=== PATIENT | male | born 1985 | race Caucasian/White ===

== ENCOUNTER 2017-06-02 10:52 | Observation (INO) | payer OTHER ==
[~2017-06-02] VITALS: Ht 172.7 cm; Wt 60.3 kg
[2017-06-02 11:02] VITALS: BP 113/72; PULSE 66; RESP 16; O2SAT 100
--- NOTE | 2017-06-02 11:28 | ED.REPORT ---
HPI-Headache Date of Service Jun 02, 2017 ED Provider: Roland Mireles MD A 31 year old male with a history of extremely infrequent migraines presents to the ED complaining of a headache. The headache has been present for three days and is accompanied by right ear pain, photophobia, nightly fever, slight neck soreness and diaphoresis. The headache is exacerbated by standing. The pt suspects that his symptoms are related to a possible ear infection following a piece of cerumen becoming lodged in his ear canal. He denies sore throat. The pt has experienced two to three migraines in the past. Nursing Notes Stated Complaint: MIGRAINE/REF BY DOCTOR Chief Complaint: Headache Nursing Notes Reviewed: Yes Allergies: Coded Allergies: No Known Allergies (Unverified , 06/02/17) Scheduled Neomycin/Polymyxin B Sulf/Hc (Kxvnvlma-Nbvssqcjq-Rr Ear Soln) 10 Ml Solution 4 DROP AFFECT_EAR TID x7 days Vit B Complex 100 Cmb #2/Herbs (Sm Natural Balanced B-100 Tab) 100 Mg Tablet 100 MG PO DAILY Scheduled PRN Aspirin/Acetaminophen/Caffeine (Iouzbtr-Nqkojieumztkv-Salk Tab) 250 Mg-250 Mg- 65 Mg Tablet 1 EACH PO DIRECTED PRN PRN migraine General Time Seen by MD: 11:27 Chief Complaint Headache Hx Obtained From: Patient Arrived By: Walk-in Sudden in Onset?: No Onset Occurred: 3 days ago Symptom Duration: Since onset Recent Healthcare: No recent doctor visit, No recent hospitalization Similar Sx Previous: No Past Medical History Past Medical History extremely infrequent migraines Past Surgical History none reported Smoking History Never Smoker Social History Alcohol Use: "Social" Other Social History: Good social support, Ambulatory Status Independent Review of Systems Review of Systems Note: slight neck soreness Constitutional: Reports: Fever Eyes: Reports: Photophobia Ears / Nose / Throat: Reports: Earache right, Denies: Sore throat GI: Denies: Abdominal pain Musculoskeletal: Denies: Back pain Skin: Reports Diaphoresis, Denies Rash Neurologic: Reports: Headache Complete sys rev & neg: except as marked. Physical Exam Initial Vital Signs Vital Signs (First) Date Time Temp Pulse Resp B/P Pulse Ox O2 Delivery O2 Flow Rate FiO2 06/02/17 11:02 36.6 66 16 113/72 100 Room Air Initial VS: Reviewed General/Constitutional: Awake, Alert Head / Eyes: Atraumatic, Normocephalic, PERRL, EOMI Neck: Atraumatic, Supple, Full range of motion Neurologic: Oriented X3, Speech NL, No motor deficits, No sensory deficits ENT: Airway patent, Mucous membranes moist mild erythema and canal irritation in right ear canal Respiratory / Chest: Atraumatic, Breath sounds NL, Breath sounds = bilat, No respiratory distress Cardiovascular: Heart rate NL, Regular rhythm, Heart sounds NL Abdomen: Atraumatic, Soft, Non-tender Skin: Atraumatic, No rash, Warm, Dry Psychiatric: Affect NL, Mood NL Back: Atraumatic, Full range of motion Upper Extremity / MS: Atraumatic, Full range of motion Lower Extremity / Pelvis / MS: Atraumatic, Full range of motion Interpretation & Diagnostics Lab Results Interpretation Result Diagram: 06/02/17 1300 06/02/17 1300 Test 06/02/17 13:00 06/02/17 15:29 White Blood Count 7.0th/mm3 (3.8-10.1) Red Blood Count 4.86mil/mm3 (4.40-5.80) Hemoglobin 14.3g/dL (13.8-17.2) Hematocrit 42.7% (41.0-50.0) Mean Corpuscular Volume 87.9fL (81-100) Mean Corpuscular Hemoglobin 29.4pg (27.0-35.0) Mean Corpuscular Hemoglobin Concent 33.5% (32.0-37.0) Red Cell Distribution Width 13.7% (12.3-15.4) Platelet Count 212bil/L (150-400) Neutrophils (%) (Auto) 63.3% (40-74) Lymphocytes (%) (Auto) 24.7% (14-46) Monocytes (%) (Auto) 10.5% (4-12) Eosinophils (%) (Auto) 1.1% (0-5) Basophils (%) (Auto) 0.4% (0-3) Sodium Level 140mEq/L (134-144) Potassium Level 3.9mEq/L (3.5-5.2) Chloride Level 98mEq/L (97-108) Carbon Dioxide Level 26mmol/L (18-29) Blood Urea Nitrogen 10mg/dL (6-20) Creatinine 1.22mg/dL (0.76-1.27) Estimat Glomerular Filtration Rate 73mL/min (>59) Glucose Level 98mg/dL (60-99) Calcium Level 9.7mg/dL (8.5-10.1) CSF Appearance Clear (CLEAR) CSF Color Colorless (COLORLESS) CSF WBC 118/mm3 (0-5) CSF RBC 4/mm3 CSF Mononuclear WBCs 15% CSF Polynuclear WBCs 10% CSF Other Cells 75 CSF Glucose 66mg/dL (45-90) CSF Total Protein 57mg/dL (15-45) Lab Results Interpretation: CSF positive for meningitis CT Head Interpretation IMPRESSION: No acute intracranially process. Dictated by: Bisi Cotto M.D. on 06/02/2017 at 12:31 Approved by: Bisi Cotto M.D. on 06/02/2017 at 12:39 Interpretation / Wet Read by: Interpret - Radiologist Procedures Lumbar Puncture Time: 14:35 Procedure Performed by: ED physician Consent / Setup / Site Prep: Informed consent provided, Consent from patient , Time-out performed, Hand hygiene observed, Stand sterile technique, Sterile drapes applied Skin Preparation Agent: Hibiclens - Chlorhexidine Local Anesthesia: Lidocaine w epi 1% Inserted Needle at: L3 L4 Post-Procedure / Complications: Antibiotic oint applied, Dressing applied, No complications, Tolerated procedure well, Patient stable Re-Eval/Medical Decision Med Decision/Clinical Course Meningitis with moderate to severe symptoms. We will plan to admit. Rocephin and vancomycin. Re-Evaluation/Progress #1: Time of Eval: 14:35 )( Patient Status: Condition improved Re-Evaluation/Progress Note: Pt rechecked, who is comfortable. CT results are discussed. LP is performed without complication. Re-Evaluation/Progress #2: Time of Eval: 16:16 Re-Evaluation/Progress Note: Pt rechecked, who is resting. LP results are discussed. The diagnosis and plan for admission are discussed. The pt understands and agrees with the plan. All questions are addressed at this time. Consultation : Referral / Consult Name: Colby Cornelius MD Consulted With: Hospitalist Call Returned at: 17:03 Automatic Lathe Tender: Agrees with eval, Agrees with plan, Accepts admit Note: Spoke with Dr. Cornelius, hospitalist, regarding pt's case. Dr. Cornelius agrees with the evaluation and agrees to admit the pt. Counseled Regarding: Diagnosis, Lab results, Need for admission Discharge & Departure Impression: Primary Impression: Meningitis Disposition: ADMITTED TO HOSPITAL Discharge Condition All VS Reviewed: Yes Condition: Stable Referrals: Dread Candelario Attestation Portions of this note were transcribed by Chrissy Horvath. I, Dr. Mireles personally performed the history, physical exam and medical decision-making; I reviewed and confirmed the accuracy of the information in the transcribed note. copies to: Dread Candelario Timothy S DO Jun 02, 2017 11:27 CHRISSY HORVATH Jun 02, 2017 11:39
[2017-06-02] MEDS ORDERED: 0.9% Sodium Chloride 1,000 ML IV ONE (11:48)
[2017-06-02] MEDS ORDERED: ProchlorPERazine 5 mg/mL 2 mL Inj IVPUSH ONE (11:50)
[2017-06-02] MEDS ORDERED: Dexamethasone 10 mg/mL Inj IVPUSH ONE (11:50)
--- NOTE | 2017-06-02 12:40 | DRSVH ---
PROCEDURE: CT BRAIN WITHOUT CONTRAST ([id number]) INDICATIONS: right sided headache, fevers, photophobia TECHNIQUE: Noncontrast 4.5 mm thick angled axial sections acquired from the foramen magnum to the vertex, with c oronal reformats. COMPARISON: None. FINDINGS: Image quality: Excellent. CSF spaces: Basal cisterns are patent. No extra-axial fluid collections. Ventricles are normal in size and shape. Brain: No midline shift. No intracranial masses or hemorrhage. Moseley-white matter interface is norm al. Skull and face: Calvarium and visualized facial bones are intact, without suspicious lesions. Sinuses: Visualized sinuses and mastoids are clear. IMPRESSION: No acute intracranially process. Dictated by: Bisi Cotto M.D. on 06/02/2017 at 12:31 Approved by: Bisi Cotto M.D. on 06/02/2017 at 12:39
[2017-06-02 13:24] LABS: BASOPHILS % (AUTO) 0.4 % (0-3); EOSINOPHILS % (AUTO) 1.1 % (0-5); MONOCYTES % (AUTO) 10.5 % (4-12); Mean Corpuscular Hemoglobin 29.4 pg (27.0-35.0); Mean Corpuscular Volume 87.9 fL (81-100); NEUTROPHILS % (AUTO) 63.3 % (40-74); Platelet Count 212 bil/L (150-400)
[2017-06-02] MEDS ORDERED: Lidocaine 1%-Epi 1:100,000 20 mL Inj ONE (14:29)
[2017-06-02 16:02] LABS: APPEARANCE,CSF CLEAR (CLEAR); WHITE BLOOD CELL,CSF 118 /mm3 (0-5)
[2017-06-02 16:03] LABS: COLOR,CSF COLORLESS (COLORLESS)
[2017-06-02] MEDS ORDERED: cefTRIAXone Inj 2,000 MG in Dextrose 5% Minibag Plus 50 ML IV ONE (16:15)
[2017-06-02] MEDS ORDERED: Vancomycin Inj 1,500 MG in 0.9% Sodium Chloride 500 ML IV ONE (16:25)
[2017-06-02] MEDS ORDERED: POLY AFFECT_EAR (17:03)
[2017-06-02] MEDS ORDERED: [UNRECOGNIZED DRUG - OTHER] AFFECT_EAR (17:03)
[2017-06-02] MEDS ORDERED: VIT100TA2 PO (17:03)
[2017-06-02] MEDS ORDERED: NEO AFFECT_EAR (17:03)
[2017-06-02 17:05] VITALS: BP 109/58; PULSE 63; RESP 12; O2SAT 97
[2017-06-02] MEDS ORDERED: Alum-Mag Hydrox-Simeth 30 mL Suspension PO PRN (17:25)
[2017-06-02] MEDS ORDERED: Ondansetron 2 mg/mL 2 mL Inj IVPUSH PRN (17:25)
[2017-06-02] MEDS ORDERED: Polyethylene Glycol (PEG) 17 Gm Powder PO PRN (17:25)
[2017-06-02] MEDS ORDERED: EXCEDRINE MIGRAINE (17:37)
[2017-06-02 17:39] VITALS: BP 109/58; PULSE 63; RESP 12; O2SAT 97
--- NOTE | 2017-06-02 17:40 | PCM.HPMED ---
Subjective Date of Service Jun 02, 2017 Primary Provider: Admitting Physician: Colby Cornelius MD Primary Care Physician: Pauly Attending Physician: Colby Cornelius MD Admit Status: From the Emergency Department, 23-Hour Observation, Admit to Green Team Chief Complaint: Headache and stiff neck, photophobia History of Present Illness: This is a 31-year-old gentleman who is been ill since Wednesday. He had some ear pressure and used the blocks as well as acute infarct and remove wax and then developed a headache. He had a severe headache with fevers which woke him up. Resolved on Wednesday but then came back again Wednesday night. He again had severe headache with fevers. Wednesday he went to the urgent care was given a shot which improved his headache for several hours. The patient has had persistent photophobia since Wednesday and some degree of neck stiffness. No nausea, vision. No other neurologic symptoms. The patient presented to the ER today after a follow-up phone call from urgent care where he underwent lumbar puncture which revealed a fair number of white blood cells in his CSF. He was given empiric ceftriaxone and vancomycin. He was afebrile. His CSF PCR panel still pending and Gram stain was negative for organisms. He notes his neck stiffness and photophobia have been slowly getting better. No fevers today. No myalgias. No diarrhea. No skin rash. Review of Systems: All else reviewed and otherwise unremarkable except as noted in the history of present illness Allergies Coded Allergies: No Known Allergies (Unverified , 06/02/17) Home Medications No routine medications PMH Unremarkable Surgical History Unremarkable Family History Mother at age 57 from multiple myeloma, father with KS at age 45 Social History Occupation: mechanical design engineer facilities Hx Alcohol Use: Yes Alcoholic Drinks Per Day: 4/week Hx Substance Use: No Smoking Status: Never Smoker Living Arrangement: with Family Exam Vital Signs Vital Sign - Last Date Time Temp Pulse Resp B/P Pulse Ox O2 Delivery O2 Flow Rate FiO2 06/02/17 17:05 36.8 63 12 109/58 97 Room Air Exam Oriented 3. No distress. Fluent speech. Normal affect. Normal skull. Normal nose and ears. Anicteric sclera, symmetric pupils Oropharynx is unremarkable, no facial droop. Neck is supple, normal thyroid. No adenopathy. Lungs are clear, normal effort rate. Heart is regular without murmur gallop or rub. Abdomen soft, nondistended or tender. Extremities are free of pedal edema. Good radial and pedal pulses. Skin is free of rash, lesions. No petechiae or ecchymosis. Joints are grossly normal. Cranial nerves are grossly normal. Motor strength is normal in all extremities. Normal muscular tone. No confusion, no nuchal rigidity. Lab and Diagnostics Result Diagram: 06/02/17 1300 06/02/17 1300 X-Rays, CTs and MRIs Brain CT unremarkable Assessment & Plan 1. Probable viral meningitis, present on admission and reactive. Patient was treated with empiric antibiotics, will await CSF PCR treated symptomatically with analgesics. 2. Headache, present on admission. Treated symptomatically to wait for Gram stain, culture and PCR. Patient is full resuscitation He is admitted observation status with one night length of stay anticipated. Time spent 40 minutes Colby Cornelius MD Jun 02, 2017 17:40
[2017-06-02] MEDS: 0.9% Sodium Chloride 1,000 ML IV SCH (17:45)
[2017-06-02] MEDS ORDERED: NEOM10SO8 AFFECT_EAR (17:46)
[2017-06-02] MEDS ORDERED: ASPI-1148 PO (17:49)
--- NOTE | 2017-06-02 18:32 | NUR ---
Admission Pt arrived on [facility] to 3031 from ED. Pt able to ambulate from stretcher to bed, steady gait observed. A/Ox3, IV abx infusing. No complains of increased pain, headache, ear pain, photophobia or fever. Oriented to , visiting hours, bed and call light. Spouse at bedside, will be ride home at discharge.
[2017-06-02 18:46] VITALS: BP 111/62; PULSE 70; RESP 18; O2SAT 97
[2017-06-02 20:05] VITALS: BP 98/50; PULSE 68; RESP 18; O2SAT 97
[2017-06-03] MEDS: 0.9% Sodium Chloride 1,000 ML IV SCH (03:54)
--- NOTE | 2017-06-03 05:00 | NUR ---
NOC/Activity Pt is alert and oriented. Pleasant and cooperative with care. IVF running as directed. Precaution for meningitis initiated. Lab called for positive results of enterovirus on CSF sample. Continuing care.
[2017-06-03 05:46] VITALS: BP 104/65; PULSE 57; RESP 18; O2SAT 97
[2017-06-03 06:52] LABS: BASOPHILS % (AUTO) 0.2 % (0-3); EOSINOPHILS % (AUTO) 0 % (0-5); MONOCYTES % (AUTO) 7.1 % (4-12); Mean Corpuscular Hemoglobin 29.5 pg (27.0-35.0); Mean Corpuscular Volume 88.7 fL (81-100); NEUTROPHILS % (AUTO) 82.1 % (40-74); Platelet Count 204 bil/L (150-400)
[2017-06-03] MEDS ORDERED: Vancomycin Dose per Pharmacist XX SCH (08:30)
[2017-06-03 10:09] VITALS: BP 118/71; PULSE 64; RESP 18; O2SAT 99
--- NOTE | 2017-06-03 10:34 | PCM.DIMED ---
Discharge Instructions Date of Service Jun 03, 2017 Dates of Hospitalization Jun 02, 2017 at 17:16 Discharge Diagnosis Discharge Diagnosis 1. Viral meningitis (Enterovirus), improved. 2. Headache related to meningitis Diet Discharge Diet: No restrictions Activity Discharge Activity: No restrictions Call your provider Call your provider for: Fever or Chills, Other (increased headache. ) Patient Instructions Patient Instructions Consider following up in a week and establishing care at the residents clinic Wash hands frequently Follow-up Provider: [facility] Follow-up with PCP in: 1 week Colby Cornelius MD Jun 03, 2017 10:34
[2017-06-03] MEDS ORDERED: IBUP200C PO (10:35)
--- NOTE | 2017-06-03 13:05 | NUR ---
Social Work: Discharge Data & Assessment: EMR reviewed. Patient is a 31 year old male who is on day 1 of hospitalization for meningitis per H&P. Patient's insurance is [employer] Patient does not have a PCP at this time. Patient was discussed in morning rounds. Patient has been deemed medically stable for discharge today per MD. SW was unable to complete an initial assessment prior to discharge. Transportation was provided by family. Patient had no needs at time of discharge. Plan: Patient will discharge home today. Transportation will be provided by family. Patient has no additional needs at this time. CANDIDO Rhodes
--- NOTE | 2017-06-03 15:00 | PCM.DC.MED ---
Discharge Summary Date of Service Jun 03, 2017 Dates of Hospitalization Date of Hospital Admission Jun 02, 2017 at 17:16 Date of Discharge: Jun 03, 2017 Providers: Admitting Physician: Can Cornelius MD Primary Care Physician: Nopcp Attending Physician: Can Cornelius MD Diagnosis at Time of Discharge Diagnosis at Time of Discharge 1. Viral meningitis (Enterovirus), improved. 2. Headache related to meningitis Consultations None Procedures XRay, CTs & MRIs Brain CT unremarkable Invasive Procedures Lumbar puncture in the emergency department revealing a mild pleocytosis, negative Gram stain and culture and a CSF PCR positive for enterovirus. Brief History This is a 31-year-old gentleman who is been ill since Wednesday. He had some ear pressure and used the blocks as well as acute infarct and remove wax and then developed a headache. He had a severe headache with fevers which woke him up. Resolved on Wednesday but then came back again Wednesday night. He again had severe headache with fevers. Wednesday he went to the urgent care was given a shot which improved his headache for several hours. The patient has had persistent photophobia since Wednesday and some degree of neck stiffness. No nausea, vision. No other neurologic symptoms. The patient presented to the ER today after a follow-up phone call from urgent care where he underwent lumbar puncture which revealed a fair number of white blood cells in his CSF. He was given empiric ceftriaxone and vancomycin. He was afebrile. His CSF PCR panel still pending and Gram stain was negative for organisms. He notes his neck stiffness and photophobia have been slowly getting better. No fevers today. No myalgias. No diarrhea. No skin rash. Hospital Course 1. Probable viral meningitis, present on admission and reactive. Patient was treated with empiric antibiotics, will await CSF PCR treated symptomatically with analgesics. 2. Headache, present on admission. Treated symptomatically to wait for Gram stain, culture and PCR. Patient is full resuscitation He is admitted observation status with one night length of stay anticipated. Hospital course. This patient was admitted after receiving empiric antibiotics and observed. He chronically continued to improve with minimal headache. His cultures remain negative and his PCR was positive for enterovirus consistent with a self-limited viral meningitis She was felt to be stable for discharge Exam Vital Signs (Last) Date Time Temp Pulse Resp B/P Pulse Ox O2 Delivery O2 Flow Rate FiO2 06/03/17 10:09 37.0 64 18 118/71 99 Room Air Exam Patient was seen and examined the day of discharge Test 06/02/17 15:29 06/03/17 06:39 CSF Appearance Clear (CLEAR) CSF Color Colorless (COLORLESS) CSF WBC 118/mm3 (0-5) CSF RBC 4/mm3 CSF Mononuclear WBCs 15% CSF Polynuclear WBCs 10% CSF Other Cells 75 CSF Glucose 66mg/dL (45-90) CSF Total Protein 57mg/dL (15-45) White Blood Count 11.6th/mm3 (3.8-10.1) Red Blood Count 4.44mil/mm3 (4.40-5.80) Hemoglobin 13.1g/dL (13.8-17.2) Hematocrit 39.4% (41.0-50.0) Mean Corpuscular Volume 88.7fL (81-100) Mean Corpuscular Hemoglobin 29.5pg (27.0-35.0) Mean Corpuscular Hemoglobin Concent 33.2% (32.0-37.0) Red Cell Distribution Width 13.6% (12.3-15.4) Platelet Count 204bil/L (150-400) Neutrophils (%) (Auto) 82.1% (40-74) Lymphocytes (%) (Auto) 10.3% (14-46) Monocytes (%) (Auto) 7.1% (4-12) Eosinophils (%) (Auto) 0% (0-5) Basophils (%) (Auto) 0.2% (0-3) Sodium Level 141mEq/L (134-144) Potassium Level 4.4mEq/L (3.5-5.2) Chloride Level 106mEq/L (97-108) Carbon Dioxide Level 22mmol/L (18-29) Blood Urea Nitrogen 12mg/dL (6-20) Creatinine 0.93mg/dL (0.76-1.27) Estimat Glomerular Filtration Rate 100mL/min (>59) Glucose Level 125mg/dL (60-99) Calcium Level 8.6mg/dL (8.5-10.1) Total Bilirubin 0.2mg/dL (0.0-1.2) Aspartate Amino Transf (AST/SGOT) 14U/L (0-50) Alanine Aminotransferase (ALT/SGPT) 13U/L (0-44) Alkaline Phosphatase 42U/L (25-150) Total Protein 6.0g/dL (6.4-8.4) Albumin 3.7g/dL (3.4-5.0) Discharge Medications Discharge Medications Neomycin/Polymyxin B Sulf/Hc (Hadcbrnr-Euxcahrqt-Kt Ear Soln) 10 Ml Solution 4 DROP AFFECT_EAR TID (Reported) x7 days Vit B Complex 100 Cmb #2/Herbs (Sm Natural Balanced B-100 Tab) 100 Mg Tablet 100 MG PO DAILY (Reported) As needed Ibuprofen (Ibuprofen) 200 Mg Capsule 200 MG PO QID PRN PRN Headache Prescribed by: CAN CORNELIUS MD Followup Plan Disposition: Home Discharge Diet: No restrictions Discharge Activity: No restrictions Patient Instructions Consider following up in a week and establishing care at the residents clinic Wash hands frequently Follow-up Provider: [facility] Follow-up with PCP in: 1 week Time spent 30 minutes Can Cornelius MD Jun 03, 2017 15:00
== END 2017-06-03 12:22 | disposition home or self-care (01) ==
LOC: SED 10:52 → INTOOBSV 17:16 → MPC 17:16
PROVIDERS: ADMIT Hospitalist; ATTEND Hospitalist
DX: A87.9 Viral meningitis, unspecified (principal); B97.10 Unspecified enterovirus as the cause of diseases classified elsewhere; R51 Headache; R50.9 Fever, unspecified
CPT/HCPCS: 36415; 62270; 70450; 80048; 80053; 82945; 84155; 85025; 87040; 87070; 87205; 87496; 87498; 87529; 87532; 87653; 87798; 89051; 96365; 96366; 96367; 96375; 99285; G0378; J0696; J0780; J1100; J1200; J3370; J7030; J7040